=== PATIENT | female | born 1960 | race Caucasian/White ===

== ENCOUNTER 2018-05-24 06:25 | Day surgery (SDC) | payer MEDICAID ==
[2018-05-23 09:47] LABS: CALC OSMOLALITY 277 mosm/kg (275-300); CALCIUM 8.7 mg/dL (8.5-10.1); CARBON DIOXIDE 31.2 mmol/L (21.0-32.0); CHLORIDE - SERUM 103 mmol/L (98-107); CREATININE - SERUM 0.8 mg/dL (0.6-1.3); GLUCOSE 83 mg/dL (74-106); POTASSIUM - SERUM 3.8 mmol/L (3.5-5.1); SODIUM 140 mmol/L (136-145); UREA NITROGEN 12 mg/dL (7-18); eGFR NON AFRICAN AMERICAN 78 mL/min (90-120)
[2018-05-23 09:48] LABS: HEMATOCRIT 40.1 % (36.0-48.0); MCH 31.6 pg (26.0-34.0); MCHC 32.4 g/dL (31.0-37.0); MCV 97.6 fL (80.0-100.0); MEAN PLATELET VOLUME 10.3 fL (7.4-10.4); RBC 4.11 10x6/uL (4.00-5.40); RDW 13.5 % (11.5-14.5); WBC 7.4 10x3/uL (4.8-10.8)
[~2018-05-24] VITALS: Ht 160 cm; Wt 60.3 kg
--- NOTE | ~2018-05-24 | OP ---
PATIENT NAME: SUNNY RODRIGUEZ MEDICAL RECORD: [id number] :56 LOCATION:[facility] ADMISSION DATE: SURGEON: JAIRO VERA DO DATE OF OPERATION: 05/24/2018 PROCEDURE PERFORMED: Removal of hardware from the left proximal tibia. PREOPERATIVE DIAGNOSIS: Left proximal tibia painful hardware. POSTOPERATIVE DIAGNOSIS: Left proximal tibia painful hardware. INDICATIONS: Ms. Rodriguez is a 57-year-old female who last year sustained a left tibial plateau fracture in January 2017 and she had it fixed in [place]. She followed up with me. I told her that we leave the hardware in for about a year. If it began to bother her since it was somewhat prominent and due to her thin body habitus, we could take it out. She presented to me a few weeks ago and said she wanted it out. Since it was over a year, I agreed to that. 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 She is aware that she wants the hardware out first and then see if the knee pain got better. She is aware of the risks and benefits of the procedure including infection, bleeding, need for further surgery and damage to nerves and vessels. She consented to the procedure. SURGEON: Jairo Vera DO DESCRIPTION OF PROCEDURE: The patient was given a block in the preoperative area and taken to the operative suite, laid in supine position, given general anesthetic, 2 grams Ancef preoperatively. A tourniquet was placed above the knee under the drapes. The patient was then prepped and draped. Timeout was performed and everyone was in agreement with the correct side, site, patient and procedure. The incision was then marked out over the old incision on the lateral aspect of the proximal tibia and the left lower extremity was exsanguinated with the James wrap and the tourniquet was inflated and was up for 28 minutes during the procedure. Incision was made with 15 blade over the old incision. Careful dissection was made down to the plate. The plate was exposed and all screws were removed. There were 2 screws also, they were not in the plate, one was medially. A small bella incision was made and the screw was encountered and removed and then the other one was laterally under the plate and this was removed. Once the hardware had all been removed, x-rays were taken to confirm that all been removed and the screw holes were picked out with the dental pick in order to stimulate healing. Then the wounds were irrigated and the tourniquet was let down at 28 minutes. After the tourniquet was then let down, all bleeders were coagulated. She did have some oozing from the bone, however. The fascia of the anterior tibia was closed loosely with #1 Vicryl in a [id number] fashion and then the skin was closed with 2-0 Vicryl and a ZipLine was placed on the skin. The small bella incision anteromedially was closed with 3-0 Monocryl in an interrupted fashion. The ZipLine was then placed on the skin over the larger incision and Adaptic, 4 x 4s, ABD, Webril and James wrap were then placed around the knee and the incision site and the patient was awakened and taken to recovery in stable condition. BLOOD LOSS: Approximately 50 mL. COMPLICATIONS: None. OPERATIVE REPORT [id number] SUNNY RODRIGUEZ TRANSINT:[id number] Voice Confirmation ID: [id number] DOCUMENT ID: [id number] JAIRO VERA DO at 1259 CC: [id number] DICTATION DATE: 05/24/18 1024 ORTHOPHOTOGRAPHY TECHNICIAN: 05/24/18 1126 [facility] 05/24/18 [id number] [place] [address]
[~2018-05-24 06:25] MED LIST: CELEXA40 MG PO; TIROSINT112 MCG PO; TYLENOL W/CODEI1 TAB PO; ZOFRAN ODT4 MG/UDTAB PO
[2018-05-24] MEDS ORDERED: CALCI-CHEW1 TAB.CHEW PO (07:52)
[2018-05-24 07:55] VITALS: BP 114/65; Ht 160 cm; Wt 60.3 kg
[2018-05-24] MEDS ORDERED: KEFLEX500 MG PO (10:17)
[2018-05-24] MEDS ORDERED: VISTARIL50 MG PO (10:18)
[2018-05-24] MEDS ORDERED: PERCOCET 7.5/321 TAB PO (10:18)
[2018-05-24] MEDS ORDERED: ZOFRAN ODT4 MG/UDTAB PO (10:18)
== END 2018-05-24 12:31 | disposition home or self-care (01) ==
LOC: D.OPS 06:25 → D.PAN 12:00 → D.OPS 12:00
PROVIDERS: Anesthesiology
DX: T84.84XA Pain due to internal orthopedic prosthetic devices, implants and grafts, initial encounter (principal); Z01.812 Encounter for preprocedural laboratory examination